=== PATIENT | male | born 1945 | race Caucasian/White ===

== ENCOUNTER → 2019-12-03 | Emergency (ER) | payer MEDICARE, OTHER ==
[~2019-12-03] VITALS: Ht 208.3 cm; Wt 88.5 kg
[~2019-12-03] MED LIST: AMBIEN 5 MG TABL5 M1 PO; BACTRIM DS TAB1 EACH PO; CENTRUM SILVER1 EAC2 PO; ELIQUIS5 MG PO; FISH OIL 1,001000 M2 PO; FLECAINIDE ACET50 M2 PO; FLOMAX0.4 MG PO; FLONASE 0.05%50 MCG NASAL; HYDROCODONE-AP1 EAC6 PO; NORVASC5 MG PO; PRADAXA150 MG PO; SIMVASTATIN40 MG PO; TOPROL XL25 MG PO; VIACTIV SOFT C1 EACH PO; ZOCOR20 MG PO
[2019-12-03 18:17] VITALS: BP 147/64
== END ==
LOC: M.ERS 17:34
DX: S09.8XXA Other specified injuries of head, initial encounter (principal); I10 Essential (primary) hypertension; E78.00 Pure hypercholesterolemia, unspecified; I48.91 Unspecified atrial fibrillation; G47.30 Sleep apnea, unspecified; N40.0 Benign prostatic hyperplasia without lower urinary tract symptoms; Z85.51 Personal history of malignant neoplasm of bladder

== ENCOUNTER 2021-04-19 11:28 | Emergency (ER) | payer MEDICARE, OTHER ==
[~2021-04-19] VITALS: Ht 177.8 cm; Wt 86.2 kg
[2021-04-19] MEDS ORDERED: ZPAK PO (15:47)
[2021-04-19] MEDS ORDERED: VENTOLIN HFA 1818 GM INH (15:47)
[2021-04-19] MEDS ORDERED: PREDNISONE 20 M20 MG PO (15:47)
[2021-04-19 15:58] VITALS: BP 129/70
== END 2021-04-19 15:59 | disposition home or self-care (01) ==
LOC: M.ERS 11:28
DX: J98.8 Other specified respiratory disorders (principal); Z20.822 Contact with and (suspected) exposure to COVID-19; I10 Essential (primary) hypertension; E78.00 Pure hypercholesterolemia, unspecified; I48.91 Unspecified atrial fibrillation; Z98.890 Other specified postprocedural states; Z85.51 Personal history of malignant neoplasm of bladder; Z79.891 Long term (current) use of opiate analgesic; Z79.1 Long term (current) use of non-steroidal anti-inflammatories (NSAID); Z79.899 Other long term (current) drug therapy